=== PATIENT | female | born 1980 | race Caucasian/White ===

== ENCOUNTER 2017-01-15 20:18 | Emergency (ER) | payer OTHER ==
[~2017-01-15] VITALS: Ht 160 cm; Wt 77.0 kg
[~2017-01-15 20:18] MED LIST: ACET-327 PO; MEDR150V
[2017-01-15] MEDS ORDERED: ACETAMINOPHEN 500 MG TABLET PO ONE (22:15)
[2017-01-15] MEDS ORDERED: ACETAMINOPHEN 500 MG TABLET ONE (22:16)
[2017-01-15] MEDS ORDERED: SODIUM CHLORIDE 0.9% 1,000 ML IV ONE (23:15)
[2017-01-15] MEDS ORDERED: ONDANSETRON HCL 4 MG/2 ML VIAL IVP ONE (23:15)
[2017-01-15] MEDS ORDERED: IBUPROFEN 600 MG TABLET PO ONE (23:15)
[2017-01-16 00:23] VITALS: BP 120/79
== END 2017-01-16 00:25 | disposition home or self-care (01) ==
LOC: EMS 20:19
DX: O26.892 Other specified pregnancy related conditions, second trimester (principal); R51 Headache; J06.9 Acute upper respiratory infection, unspecified; Z3A.16 16 weeks gestation of pregnancy
CPT/HCPCS: 96361; 96374; 99284; J2405; J7030